=== PATIENT | female | born 1940 | race Caucasian/White ===

== ENCOUNTER 2021-03-16 17:15 | Inpatient (IN) ==
[2021-03-16] MEDS ORDERED: Naloxone 0.4 MG/ML INJ IVP PRN (22:05)
[2021-03-16] MEDS ORDERED: Ondansetron 4 MG/2 ML VIAL IVP PRN (22:05)
[2021-03-16] MEDS: 0.9 % Sodium Chloride 1,000 ML IVC SCH (23:05)
[2021-03-16] MEDS ORDERED: Perflutren Lipid Microsphere 1.3 ML in 0.9 % Sodium Chloride 8.7 ML IVP PRN (23:29)
[2021-03-16] MEDS ORDERED: Dextrose Gel 15 GM/37.5 ML TUBE PO PRN ×2 (23:40)
[2021-03-16] MEDS ORDERED: D5% in Water 1,000 ML IVC PRN (23:40)
[2021-03-16] MEDS ORDERED: *HR* Dextrose 50 % in Water (Vial) 50 ML VIAL IVP PRN (23:40)
[2021-03-16] MEDS ORDERED: Insulin LISPRO 300 UNITS/3 ML VIAL SUBQ SCH (23:45)
[2021-03-17] MEDS ORDERED: Insulin LISPRO 300 UNITS/3 ML VIAL SUBQ SCH ×2 (01:15→21:00)
[2021-03-17] MEDS: Ipratropium/Albuterol Neb 3 ML IH SCH ×5 (02:24→22:12)
[2021-03-17 03:31] LABS: Basophils % 0.5 %; Eosinophils # 0.1 K/mcL (0.0-0.6); Eosinophils % 0.8 %; Hematocrit 37.8 % (35.3-44.9); Hemoglobin 11.4 g/dL (11.5-15.4); Immature Granulocytes % 0.4 % (0-4); Lymphocytes # 0.9 K/mcL (0.6-4.6); Lymphocytes % 12.5 %; Mean Corpuscular HGB Conc 30.2 g/dL (31.6-35.5); Mean Corpuscular Hemoglobin 27.2 pg (28.0-33.3); Mean Corpuscular Volume 90.2 fL (83.0-100.0); Mean Platelet Volume 10.1 fL (9.4-12.4); Monocytes # 0.7 K/mcL (0.0-1.3); Monocytes % 8.7 %; Neutrophils # 5.8 K/mcL (1.6-8.9); Platelet Count 180 K/mcL (140-400); Red Blood Count 4.19 M/mcL (3.82-4.97); Segmented Neutrophils % 77.1 %; White Blood Count 7.5 K/mcL (4.3-11.1)
[2021-03-17 03:38] LABS: INR 1.5; Prothrombin Time 17.4 Seconds (9.4-12.1)
[2021-03-17 03:48] LABS: Calcium 8.5 mg/dL (8.6-10.3); Magnesium 1.5 mg/dL (1.6-2.6); Phosphorous 2.8 mg/dL (2.7-4.5); Potassium 4.3 mEq/L (3.5-5.1)
[2021-03-17 04:52] LABS: Estimated Average Glucose 194 mg/dl; Hemoglobin A1C 8.4 %
[2021-03-17] MEDS ORDERED: Acetaminophen 325 MG TABLET PO ONE (06:32)
[2021-03-17] MEDS: carvediloL 25 MG TABLET PO SCH ×2 (07:57→10:56)
[2021-03-17] MEDS: Furosemide 20 MG TABLET PO SCH ×2 (07:58→10:57)
[2021-03-17] MEDS: Insulin LISPRO 300 UNITS/3 ML VIAL SUBQ SCH ×3 (08:03→22:10)
[2021-03-17] MEDS ORDERED: Perflutren Lipid Microsphere 1.3 ML in 0.9 % Sodium Chloride 8.7 ML IVP PRN ×2 (09:14→19:49)
[2021-03-17] MEDS ORDERED: Morphine Sulfate 2 MG/ML SYRINGE IVP ONE (11:21)
[2021-03-17] MEDS: 0.9 % Sodium Chloride 1,000 ML IVC SCH (11:39)
[2021-03-17] MEDS ORDERED: Acetaminophen IV 1,000 MG/100 ML BAG IVPB ONE (15:28)
[2021-03-17] MEDS ORDERED: *HR* Succinylcholine 200 MG/10 ML VIAL IVP ONE (15:32)
[2021-03-17] MEDS ORDERED: *HR* Propofol 200 MG/20 ML VIAL IVP ONE (15:32)
[2021-03-17] MEDS ORDERED: *HR* FentaNYL (PF) 100 MCG/2 ML VIAL ONE (15:32)
[2021-03-17] MEDS ORDERED: Lidocaine -MPF 2% 2 ML VIAL ONE (15:32)
[2021-03-17] MEDS ORDERED: Lidocaine HCL 4 ML Topical Solution (Laryng-O-Jet Kit Sterile Pak) TP ONE (15:33)
[2021-03-17] MEDS ORDERED: Nitroglycerin 0.4 MG TAB.SUBL SL PRN ×2 (15:42→19:49)
[2021-03-17] MEDS ORDERED: Ondansetron 4 MG/2 ML VIAL IVP PRN ×3 (15:42→19:49)
[2021-03-17] MEDS ORDERED: Albuterol 2.5 MG/3 ML NEBULIZER IH PRN ×2 (15:42→19:49)
[2021-03-17] MEDS ORDERED: Naloxone 0.4 MG/ML INJ IVP PRN ×3 (15:42→19:49)
[2021-03-17] MEDS ORDERED: *HR* FentaNYL (PF) 100 MCG/2 ML VIAL IVP PRN (15:42)
[2021-03-17] MEDS ORDERED: *HR* HYDROmorphone (PF) 1 MG/ML SYRINGE IVP PRN (15:42)
[2021-03-17] MEDS ORDERED: Lidocaine/EPI 1:100k 1% 50 ML VIAL ONE ×2 (15:57→16:11)
[2021-03-17] MEDS ORDERED: Dexamethasone 4 MG/ML VIAL ONE (16:30)
[2021-03-17] MEDS ORDERED: Ondansetron 4 MG/2 ML VIAL ONE (16:30)
[2021-03-17] MEDS ORDERED: 0.9 % Sodium Chloride 1,000 ML IVC SCH (19:49)
[2021-03-17] MEDS ORDERED: Dextrose Gel 15 GM/37.5 ML TUBE PO PRN ×2 (19:49)
[2021-03-17] MEDS ORDERED: *HR* Dextrose 50 % in Water (Vial) 50 ML VIAL IVP PRN (19:49)
[2021-03-17] MEDS ORDERED: D5% in Water 1,000 ML IVC PRN (19:49)
[2021-03-17] MEDS ORDERED: Metoprolol XL (24 HR) Succ 25 MG TAB.ER.24H PO SCH (21:00)
[2021-03-17] MEDS: Metoprolol XL (24 HR) Succ 25 MG TAB.ER.24H PO SCH (22:01)
[2021-03-18 01:16] LABS: Basophils % 0.2 %; Hemoglobin 10.6 g/dL (11.5-15.4); Immature Granulocytes % 0.3 % (0-4); Lymphocytes # 0.4 K/mcL (0.6-4.6); Lymphocytes % 5.7 %; Mean Corpuscular HGB Conc 29.4 g/dL (31.6-35.5); Mean Corpuscular Hemoglobin 27.7 pg (28.0-33.3); Mean Platelet Volume 9.9 fL (9.4-12.4); Monocytes # 0.3 K/mcL (0.0-1.3); Monocytes % 3.8 %; Neutrophils # 5.9 K/mcL (1.6-8.9); Platelet Count 161 K/mcL (140-400); Red Blood Count 3.83 M/mcL (3.82-4.97); Red Cell Distribution Width 14.1 % (11.5-14.5); White Blood Count 6.5 K/mcL (4.3-11.1)
[2021-03-18 01:30] LABS: Calcium 8.2 mg/dL (8.6-10.3); Magnesium 1.9 mg/dL (1.6-2.6); Phosphorous 3.6 mg/dL (2.7-4.5); Potassium 4.6 mEq/L (3.5-5.1)
[2021-03-18] MEDS: Ipratropium/Albuterol Neb 3 ML IH SCH ×4 (03:54→22:04)
[2021-03-18] MEDS: Aspirin Enteric Coated 81 MG Tablet PO SCH (07:36)
[2021-03-18] MEDS: Metoprolol XL (24 HR) Succ 25 MG TAB.ER.24H PO SCH ×2 (07:37→20:23)
[2021-03-18] MEDS: Furosemide 20 MG TABLET PO SCH (07:37)
[2021-03-18] MEDS: Insulin LISPRO 300 UNITS/3 ML VIAL SUBQ SCH ×4 (07:39→20:22)
[2021-03-18] MEDS ORDERED: Aspirin Enteric Coated 81 MG Tablet PO SCH (09:00)
[2021-03-19 02:17] LABS: Basophils % 0.1 %; Eosinophils % 0.1 %; Hematocrit 32.2 % (35.3-44.9); Hemoglobin 9.6 g/dL (11.5-15.4); Immature Granulocytes % 0.4 % (0-4); Lymphocytes % 12.8 %; Mean Corpuscular HGB Conc 29.8 g/dL (31.6-35.5); Mean Corpuscular Hemoglobin 28.2 pg (28.0-33.3); Mean Corpuscular Volume 94.4 fL (83.0-100.0); Mean Platelet Volume 10.2 fL (9.4-12.4); Monocytes # 0.8 K/mcL (0.0-1.3); Monocytes % 10.1 %; Platelet Count 147 K/mcL (140-400); Red Blood Count 3.41 M/mcL (3.82-4.97); Red Cell Distribution Width 14.1 % (11.5-14.5); Segmented Neutrophils % 76.5 %; White Blood Count 7.9 K/mcL (4.3-11.1)
[2021-03-19 02:38] LABS: Calcium 8.2 mg/dL (8.6-10.3); Magnesium 1.8 mg/dL (1.6-2.6); Phosphorous 2.9 mg/dL (2.7-4.5); Potassium 5.5 mEq/L (3.5-5.1)
[2021-03-19] MEDS ORDERED: Acetaminophen IV 1,000 MG/100 ML BAG IVPB ONE (02:44)
[2021-03-19] MEDS: Ipratropium/Albuterol Neb 3 ML IH SCH ×4 (03:58→22:33)
[2021-03-19] MEDS: Furosemide 20 MG TABLET PO SCH (08:05)
[2021-03-19] MEDS: Metoprolol XL (24 HR) Succ 25 MG TAB.ER.24H PO SCH ×2 (08:05→20:08)
[2021-03-19] MEDS: Insulin LISPRO 300 UNITS/3 ML VIAL SUBQ SCH ×4 (08:05→20:08)
[2021-03-19] MEDS: Aspirin Enteric Coated 81 MG Tablet PO SCH (08:05)
[2021-03-19] MEDS ORDERED: Insulin Human Regular 10 UNIT in 0.9 % Sodium Chloride 10 ML IV ONE (11:17)
[2021-03-19] MEDS ORDERED: *HR* Dextrose 50 % in Water (Vial) 50 ML VIAL IVP ONE (11:17)
[2021-03-19] MEDS ORDERED: 0.9 % Sodium Chloride 250 ML IVC ONE (15:10)
[2021-03-20 02:33] LABS: Basophils % 0.4 %; Eosinophils # 0.1 K/mcL (0.0-0.6); Eosinophils % 1.1 %; Hematocrit 34.4 % (35.3-44.9); Hemoglobin 10.2 g/dL (11.5-15.4); Immature Granulocytes % 0.6 % (0-4); Lymphocytes # 1.2 K/mcL (0.6-4.6); Lymphocytes % 16.2 %; Mean Corpuscular HGB Conc 29.7 g/dL (31.6-35.5); Mean Corpuscular Hemoglobin 27.8 pg (28.0-33.3); Mean Corpuscular Volume 93.7 fL (83.0-100.0); Mean Platelet Volume 10.2 fL (9.4-12.4); Monocytes # 0.8 K/mcL (0.0-1.3); Monocytes % 11.1 %; Neutrophils # 5.1 K/mcL (1.6-8.9); Platelet Count 149 K/mcL (140-400); Red Blood Count 3.67 M/mcL (3.82-4.97); Segmented Neutrophils % 70.6 %; White Blood Count 7.2 K/mcL (4.3-11.1)
[2021-03-20 02:44] LABS: Calcium 8.6 mg/dL (8.6-10.3); Magnesium 1.5 mg/dL (1.6-2.6); Phosphorous 2.2 mg/dL (2.7-4.5); Potassium 4.4 mEq/L (3.5-5.1)
[2021-03-20] MEDS: Ipratropium/Albuterol Neb 3 ML IH SCH ×2 (03:40→11:22)
[2021-03-20 05:11] VITALS: BP 124/77
[2021-03-20] MEDS: Aspirin Enteric Coated 81 MG Tablet PO SCH (08:43)
[2021-03-20] MEDS: Metoprolol XL (24 HR) Succ 25 MG TAB.ER.24H PO SCH (08:43)
[2021-03-20] MEDS: Insulin LISPRO 300 UNITS/3 ML VIAL SUBQ SCH ×2 (08:43→12:26)
[2021-03-20 11:19] LABS: Adenovirus Not Detected (Not Detect); Bordetella Pertussis Not Detected (Not Detect); Chlamydophila pneumoniae Not Detected (Not Detect); Coronavirus 229E Not Detected (Not Detect); Coronavirus HKU1 Not Detected (Not Detect); Coronavirus NL63 Not Detected (Not Detect); Coronavirus OC43 Not Detected (Not Detect); Human Metapneumovirus Not Detected (Not Detect); Human Rhinovirus/Enterovirus Not Detected (Not Detect); Influenza A Subtype 2009 H1 Not Detected (Not Detect); Influenza B Not Detected (Not Detect); Mycoplasma pneumoniae Not Detected (Not Detect); Parainfluenza Virus 1 Not Detected (Not Detect); Parainfluenza Virus 2 Not Detected (Not Detect); Parainfluenza Virus 3 Not Detected (Not Detect); Parainfluenza Virus 4 Not Detected (Not Detect); Respiratory Syncytial Virus Not Detected (Not Detect); SARS-CoV-2 Not Detected (Not Detect)
[2021-03-20] MEDS ORDERED: Apixaban 5 MG TABLET PO SCH (12:30)
== END 2021-03-20 13:32 | DRG 493 ==
LOC: 3NENU → SUATTDRO 20:16
PROVIDERS: ADMIT Family Medicine; ATTEND Student in an Organized Health Care Education/Training Program